=== PATIENT | male | born 1985 | race Caucasian/White ===

== ENCOUNTER 2022-06-17 07:18 | Outpatient (CLI) | payer OTHER | END 2022-06-17 07:19 | disposition home or self-care (01) | LOC: BICMRI 07:18 | PROVIDERS: ATTEND Physician Assistant Medical | DX: S46.912D Strain of unspecified muscle, fascia and tendon at shoulder and upper arm level, left arm, subsequent encounter (principal); S43.432A Superior glenoid labrum lesion of left shoulder, initial encounter; S43.492A Other sprain of left shoulder joint, initial encounter ==